=== PATIENT | female | born 1945 | race Two or more races ===

== ENCOUNTER 2022-07-26 12:40 | Inpatient (IN) | payer BC, OTHER, MEDICARE ==
[2022-07-26] MEDS ORDERED: dilTIAZem HCL 50 MG/10 ML - 10 ML VIAL IVPUSH ONE ×2 (13:09→14:30)
[2022-07-26 13:16] VITALS: BMI 21.6
[2022-07-26] MEDS ORDERED: SODIUM CHLORIDE 0.9% 500 ML INFUS.BAG IV ONE (13:16)
[2022-07-26] MEDS ORDERED: dilTIAZem HCL 125 MG/25 ML - 25 ML VIAL ONE (13:26)
[2022-07-26 13:33] LABS: INR 1.08 (0.83-1.09); PROTHROMBIN TIME (PATIENT) 12.4 SEC (9.7-13.0)
[2022-07-26 13:36] LABS: ACTIVATED PTT 34.8 SECONDS (25.2-36.5)
[2022-07-26 13:37] LABS: HEMATOCRIT 39.6 % (32.4-45.2); HEMOGLOBIN 13.4 G/dL (10.7-15.3); MCH 30.6 pg (25.7-33.7); MCHC 33.8 g/dl (32.0-36.0); MEAN CELL VOLUME 90.4 fl (80-96); MEAN PLT VOLUME 9.9 fl (7.5-11.1); PLATELET COUNT 195.1 10^3/uL (134-434); RBC 4.38 10^6/uL (3.60-5.2); WHITE BLOOD COUNT 6.3 10^3/uL (4.0-10.8)
[2022-07-26 13:39] LABS: ALBUMIN 4.2 g/dl (3.4-5.0); CALCIUM 9.6 mg/dl (8.5-10); MAGNESIUM 1.4 mg/dL (1.8-2.4); TOT PROT 6.9 g/dl (6.4-8.2)
[2022-07-26] MEDS ORDERED: MAGNESIUM SULF 50% (8.12 MEQ/2 ML-1 GM VIAL) IVPB ONE (13:43)
[2022-07-26] MEDS ORDERED: MAGNESIUM SULFATE IN WATER 2 GM/50 ML IVPB IVPB ONE (13:46)
[2022-07-26] MEDS ORDERED: dilTIAZem HCL 60 MG TABLET PO ONE (13:49)
[2022-07-26] MEDS ORDERED: dilTIAZem HCL 30 MG TABLET ONE (13:56)
[2022-07-26] MEDS ORDERED: APIXABAN 5 MG TABLET PO ONE (14:33)
[2022-07-26] MEDS ORDERED: ASPIRIN 81 MG CHEWABLE TABLETS PO ONE (15:13)
[2022-07-26] MEDS ORDERED: ASPIRIN 81 MG CHEWABLE TABLETS ONE (15:17)
[2022-07-26] MEDS: SODIUM CHLORIDE 1,000 ML IV SCH (15:20)
[2022-07-26 16:16] LABS: ANISOCYTOSIS 1+; PLATELET ESTIMATE ADEQUATE
[2022-07-26] MEDS: dilTIAZem HCL 30 MG TABLET PO SCH (18:01)
[2022-07-26 19:31] LABS: N-TERMINAL BNP 3658.2 pg/ml (5-450)
[2022-07-26] MEDS: ATORVASTATIN CA 40 MG TABLET (FP) PO SCH (23:03)
[2022-07-26] MEDS: APIXABAN 5 MG TABLET PO SCH (23:03)
[2022-07-27] MEDS: dilTIAZem HCL 30 MG TABLET PO SCH ×5 (02:07→17:33)
[2022-07-27] MEDS ORDERED: dilTIAZem HCL 50 MG/10 ML - 10 ML VIAL IVPUSH ONE (04:02)
[2022-07-27] MEDS ORDERED: dilTIAZem HCL 25 MG/5 ML - 5 ML VIAL IVPUSH ONE (04:30)
[2022-07-27] MEDS ORDERED: ALPRAZolam 0.25 MG TABLET PO ONE ×2 (09:45→20:48)
[2022-07-27] MEDS: PANTOPRAZOLE 40 MG TABLET PO SCH (09:45)
[2022-07-27] MEDS: ASPIRIN 81 MG CHEWABLE TABLETS PO SCH (09:45)
[2022-07-27] MEDS: APIXABAN 5 MG TABLET PO SCH ×2 (09:45→22:04)
[2022-07-27] MEDS ORDERED: ALPRAZolam 0.25 MG TABLET PO PRN (10:25)
[2022-07-27] MEDS: SODIUM CHLORIDE 1,000 ML IV SCH (21:30)
[2022-07-27] MEDS: ATORVASTATIN CA 40 MG TABLET (FP) PO SCH (22:04)
[2022-07-28] MEDS: dilTIAZem HCL 30 MG TABLET PO SCH ×3 (00:30→12:19)
[2022-07-28 07:37] LABS: BASO % 0.4 % (0-2.0); EOS % 0.3 % (0-4.5); HEMATOCRIT 36.5 % (32.4-45.2); HEMOGLOBIN 12.4 GM/dL (10.7-15.3); LYMPH % 23.9 % (8-40); MCH 30.2 pg (25.7-33.7); MEAN CELL VOLUME 88.7 fl (80-96); MEAN PLT VOLUME 9.7 fl (7.5-11.1); MONO % 8.1 % (3.8-10.2); NEUT % 67.3 % (42.8-82.8); PLATELET COUNT 175 10^3/uL (134-434); RBC 4.11 M/mm3 (3.60-5.2); RDW 13.8 % (11.6-15.6); WHITE BLOOD COUNT 5.3 K/mm3 (4.0-10.0)
[2022-07-28 08:11] LABS: ALBUMIN 3.3 g/dl (3.4-5.0); BLOOD UREA NITROGEN 12.2 mg/dL (7-18); CALCIUM 8.7 mg/dL (8.5-10.1); MAGNESIUM 1.8 mg/dL (1.8-2.4)
[2022-07-28 08:14] LABS: CREATININE 0.9 mg/dL (0.55-1.3)
[2022-07-28 08:15] LABS: BILIRUBIN,TOTAL 0.6 mg/dL (0.2-1)
[2022-07-28] MEDS: ASPIRIN 81 MG CHEWABLE TABLETS PO SCH (10:07)
[2022-07-28] MEDS: APIXABAN 5 MG TABLET PO SCH ×2 (10:07→22:09)
[2022-07-28] MEDS: PANTOPRAZOLE 40 MG TABLET PO SCH (10:07)
[2022-07-28] MEDS: DIGOXIN 0.5 MG/2 ML AMPUL IVPUSH SCH ×2 (12:28→18:35)
[2022-07-28] MEDS: SODIUM CHLORIDE 1,000 ML IV SCH (16:17)
[2022-07-28] MEDS ORDERED: METOPROLOL TARTRATE 5 MG/5 ML VIAL IVPUSH PRN (16:39)
[2022-07-28] MEDS ORDERED: SODIUM CHLORIDE 0.9% 500 ML INFUS.BAG IV ONE (16:40)
[2022-07-28] MEDS ORDERED: METOPROLOL TARTRATE 5 MG/5 ML VIAL IVPUSH ONE ×2 (16:45→17:30)
[2022-07-28] MEDS ORDERED: ALPRAZolam 0.25 MG TABLET PO ONE (18:25)
[2022-07-28] MEDS: ATORVASTATIN CA 40 MG TABLET (FP) PO SCH (22:08)
[2022-07-29] MEDS: SODIUM CHLORIDE 1,000 ML IV SCH ×2 (06:42→21:22)
[2022-07-29] MEDS: PANTOPRAZOLE 40 MG TABLET PO SCH (09:32)
[2022-07-29] MEDS: APIXABAN 5 MG TABLET PO SCH ×2 (09:32→21:22)
[2022-07-29] MEDS: ASPIRIN 81 MG CHEWABLE TABLETS PO SCH (09:32)
[2022-07-29] MEDS: DIGOXIN 0.25 MG TABLET PO SCH (09:34)
[2022-07-29] MEDS ORDERED: metoPROLOL SUCCINATE 25 MG TAB.SR.24H (FP) PO ONE (16:00)
[2022-07-29] MEDS: ALPRAZolam 0.25 MG TABLET PO PRN (16:04)
[2022-07-29] MEDS: ATORVASTATIN CA 40 MG TABLET (FP) PO SCH (21:22)
[2022-07-30] MEDS: PANTOPRAZOLE 40 MG TABLET PO SCH (09:04)
[2022-07-30] MEDS: ASPIRIN 81 MG CHEWABLE TABLETS PO SCH (09:04)
[2022-07-30] MEDS: DIGOXIN 0.25 MG TABLET PO SCH (09:04)
[2022-07-30] MEDS: APIXABAN 5 MG TABLET PO SCH (09:04)
[2022-07-30] MEDS ORDERED: LIDOCAINE VISCOUS 2% ORAL/TOP 15 ML UNIT-DOSE CUP ONE ×2 (10:41→11:28)
[2022-07-30] MEDS ORDERED: PROPOFOL 40 ML ONE (10:52)
[2022-07-30] MEDS ORDERED: PROPOFOL 20 ML ONE (10:52)
[2022-07-30] MEDS ORDERED: MIDAZOLAM HCL 2 MG/2 ML SINGLE DOSE VIAL ONE (10:52)
[2022-07-30 15:44] VITALS: RESP 18
[2022-07-30] MEDS: ALPRAZolam 0.25 MG TABLET PO PRN (18:28)
[2022-07-30 18:32] VITALS: BP 126/96; PULSE 116; TEMP 98
== END 2022-07-30 19:20 | disposition short-term general hospital (02) | DRG 309 ==
LOC: EDBD 12:40 → FER 12:40 → OBSVTOIN 13:46 → INTOOBSV 13:46 → FM/S 13:46 → UNDOADMOB 13:46 → FM/S 14:46 → J4W 19:50 → INTOOBSV 19:50 → OBSVTOIN 07-29 12:54
PROVIDERS: ADMIT Internal Medicine; ATTEND Internal Medicine
DX: I48.0 Paroxysmal atrial fibrillation (principal); I24.8 Other forms of acute ischemic heart disease; R00.0 Tachycardia, unspecified; I34.1 Nonrheumatic mitral (valve) prolapse; I25.10 Atherosclerotic heart disease of native coronary artery without angina pectoris; K21.9 Gastro-esophageal reflux disease without esophagitis; E83.42 Hypomagnesemia
CPT/HCPCS: 36415; 71045-TC-FY; 80053; 82550; 83735; 83880; 84439; 84443; 84484; 85025; 85027; 85610; 85730; 93005; 93010; 93306-TC; 99291; C9803-CS; G0378; U0003; U0005